=== PATIENT | male | born 1965 | race Caucasian/White ===

== ENCOUNTER 2018-03-29 16:43 | Emergency (ER) | payer OTHER ==
[2018-03-29 17:48] LABS: Absolute Lymphocytes (CBC) 0.9 K/uL (0.7-4.9); Absolute Monocytes 0.6 K/uL (0.1-1.3); Absolute Neutrophil 9.6 K/uL (1.8-8.0); Basophils % 0.3 % (0-1.3); Eosinophils % 0.2 % (0-4.4); Hematocrit 46.3 % (39.6-49.0); Lymphocytes % 7.9 % (15.3-44.8); MCH 29.2 pg (27.0-35.0); MPV 7.3 fL (7.6-11.3); Monocytes % 5.7 % (3.3-12.3); RBC Red Blood Cell Count 5.39 M/uL (4.33-5.43)
[2018-03-29 17:53] LABS: Protime INR 0.94
--- NOTE | 2018-03-29 17:56 | RAD REPORT ---
EXAM DESCRIPTION: RAD - Chest Single View - 03/29/2018 5:48 pm CLINICAL HISTORY: Chest pain. COMPARISON: None. FINDINGS: Portable technique limits examination quality. The lungs are grossly clear. The heart is normal in size. No displaced fractures. IMPRESSION: No acute intrathoracic process suspected.
[2018-03-29 18:08] LABS: Albumin 4.7 g/dL (3.2-5.5); Bilirubin Direct 0.1 mg/dL (0-0.2); Bilirubin Total 0.8 mg/dL (0.3-1.2); Magnesium 1.8 mg/dL (1.8-2.5); Protein, Total 8.2 g/dL (6.0-8.3)
[2018-03-29 18:11] LABS: CKMB Creatine Kinase MB 1.1 ng/ml (0.3-4.0)
[2018-03-29] MEDS ORDERED: ACETAMINOPHEN 500 MG TAB ONE (18:40)
[2018-03-29 18:48] LABS: Blood Morphology Comment NOT SEEN (NOT SEEN); Platelet Estimate ADEQ; Urine White Blood Cell Casts OK
--- NOTE | 2018-03-29 20:05 | EDPHYS ---
Physician Documentation [facility] Name: Thierry Davis Age: 52 yrs Sex: Male : 1965 Arrival Date: 03/29/2018 Time: 16:47 Bed 15 Private MD: ED Physician Iam Bustamante HPI: 03/29 17:30 This 52 yrs old Male presents to ER via Ambulatory with complaints of Fever, pm1 Nausea, BURPING. 17:30 Associated signs and symptoms: Pertinent positives: nausea, Pertinent negatives: pm1 abdominal pain, chest pain, cough, skin rash, shortness of breath, vomiting. The patient has not experienced similar symptoms in the past. The patient has not recently seen a physician, the patient's primary care provider is Dr. Parrish. Patient with complaints of nausea this AM that resolved by noon. No vomiting or diarrhea. Patient reports burping episode that has resolved. Patient with reports of subjective fevers today. Currently patient does not have any complaints of pain and his symptoms of nausea, burping, and fever have resolved. Historical: - Allergies: 17:00 No Known Allergies; lk1 - PMHx: 17:00 Hypertension; viral mennigitis; lk1 - PSHx: 17:00 Vasectomy; Tonsillectomy; lk1 - Immunization history:: Adult Immunizations up to date. - Social history:: Smoking status: Patient uses tobacco products, chewing tobacco. ROS: 17:30 Eyes: Negative for injury, pain, redness, and discharge, ENT: Negative for injury, pm1 pain, and discharge, Neck: Negative for injury, pain, and swelling, Cardiovascular: Negative for chest pain, palpitations, and edema, Respiratory: Negative for shortness of breath, cough, wheezing, and pleuritic chest pain. 17:30 Back: Negative for injury and pain, : Negative for injury, bleeding, discharge, and swelling, MS/Extremity: Negative for injury and deformity, Skin: Negative for injury, rash, and discoloration, Neuro: Negative for headache, weakness, numbness, tingling, and seizure. 17:30 Constitutional: Positive for fever, Negative for body aches, poor PO intake. 17:30 Abdomen/GI: Positive for nausea, Burping, Negative for abdominal pain, vomiting, diarrhea. Exam: 17:30 Constitutional: This is a well developed, well nourished patient who is awake, alert, pm1 and in no acute distress. Head/Face: Normocephalic, atraumatic. Eyes: Pupils equal round and reactive to light, extra-ocular motions intact. Lids and lashes normal. Conjunctiva and sclera are non-icteric and not injected. Cornea within normal limits. Periorbital areas with no swelling, redness, or edema. ENT: Nares patent. No nasal discharge, no septal abnormalities noted. Tympanic membranes are normal and external auditory canals are clear. Oropharynx with no redness, swelling, or masses, exudates, or evidence of obstruction, uvula midline. Mucous membranes moist. Neck: Trachea midline, no thyromegaly or masses palpated, and no cervical lymphadenopathy. Supple, full range of motion without nuchal rigidity, or vertebral point tenderness. No Meningismus. Chest/axilla: Normal chest wall appearance and motion. Nontender with no deformity. No lesions are appreciated. Cardiovascular: Regular rate and rhythm with a normal S1 and S2. No gallops, murmurs, or rubs. Normal PMI, no JVD. No pulse deficits. Respiratory: Lungs have equal breath sounds bilaterally, clear to auscultation and percussion. No rales, rhonchi or wheezes noted. No increased work of breathing, no retractions or nasal flaring. Abdomen/GI: Soft, non-tender, with normal bowel sounds. No distension or tympany. No guarding or rebound. No evidence of tenderness throughout. Back: No spinal tenderness. No costovertebral tenderness. Full range of motion. Skin: Warm, dry with normal turgor. Normal color with no rashes, no lesions, and no evidence of cellulitis. MS/ Extremity: Pulses equal, no cyanosis. Neurovascular intact. Full, normal range of motion. 17:30 Neuro: Orientation: is normal, Motor: is normal, Sensation: is normal. Vital Signs: 17:00 BP 122 / 77; Pulse 110; Resp 16; Temp 99.1(TE); Pulse Ox 97% on R/A; Weight 104.33 kg lk1 (R); Height 5 ft. 11 in. (180.34 cm) (R); Pain 0/10; 18:45 BP 114 / 74; Pulse 98; Resp 16; Temp 100.1; Pulse Ox 97% ; jl7 19:36 BP 109 / 70; Pulse 96; Resp 18; Pulse Ox 96% on R/A; Pain 0/10; ea 20:32 BP 118 / 72; Pulse 88; Resp 18; Temp 99.8(O); Pulse Ox 100% ; Pain 0/10; ea 17:00 Body Mass Index 32.08 (104.33 kg, 180.34 cm) lk1 MDM: 17:07 Patient medically screened. pm1 20:03 Data reviewed: vital signs. Data interpreted: Pulse oximetry: on room air is 96 %. pm1 Interpretation: normal. Counseling: I had a detailed discussion with the patient and/or guardian regarding: the historical points, exam findings, and any diagnostic results supporting the discharge/admit diagnosis, lab results, radiology results, the need for outpatient follow up, to return to the emergency department if symptoms worsen or persist or if there are any questions or concerns that arise at home. 03/29 17:14 Order name: Basic Metabolic Panel; Complete Time: 18:38 pm1 03/29 17:14 Order name: BNP; Complete Time: 18:38 pm1 03/29 17:14 Order name: CBC with Diff; Complete Time: 19:17 pm1 03/29 17:14 Order name: Ckmb; Complete Time: 18:38 pm1 03/29 17:14 Order name: CPK; Complete Time: 18:38 pm1 03/29 17:14 Order name: LFT's; Complete Time: 18:38 pm1 03/29 17:14 Order name: Magnesium; Complete Time: 18:38 pm1 03/29 17:14 Order name: PT-INR; Complete Time: 18:00 pm1 03/29 17:14 Order name: Ptt, Activated; Complete Time: 18:00 pm1 03/29 17:14 Order name: Troponin (emerg Dept Use Only); Complete Time: 18:38 pm1 03/29 17:14 Order name: XRAY Chest (1 view); Complete Time: 18:00 pm1 03/29 17:14 Order name: Lipase; Complete Time: 18:38 pm1 03/29 18:48 Order name: CBC Smear Scan; Complete Time: 19:17 EDMS 03/29 17:14 Order name: EKG; Complete Time: 17:14 pm1 03/29 17:14 Order name: Cardiac monitoring; Complete Time: 17:58 pm1 03/29 17:14 Order name: EKG - Nurse/Tech; Complete Time: 17:58 pm1 03/29 17:14 Order name: IV Saline Lock; Complete Time: 17:58 pm1 03/29 17:14 Order name: Labs collected and sent; Complete Time: 17:58 pm1 03/29 17:14 Order name: O2 Per Protocol; Complete Time: 17:57 pm1 03/29 17:14 Order name: O2 Sat Monitoring; Complete Time: 17:57 pm1 Administered Medications: 18:43 Drug: Acetaminophen 1000 mg Route: PO; jl7 20:10 Follow up: Response: No adverse reaction; Temperature is decreased ea Disposition: 03/29/18 20:04 Discharged to Home. Impression: Viral syndrome, Nausea. - Condition is Stable. - Discharge Instructions: Nausea, Adult, Viral Infections. - Prescriptions for Zofran 4 mg Oral Tablet - take 1 tablet by ORAL route every 12 hours As needed; 20 tablet. - Medication Reconciliation Form, Thank You Letter, Antibiotic Education form. - Follow up: Emergency Department; When: As needed; Reason: Worsening of condition. Follow up: Private Physician; When: 2 - 3 days; Reason: Recheck today's complaints, Continuance of care, Re-evaluation by your physician. - Problem is new. - Symptoms have improved. Addendum: 04/01/2018 21:58 Co-signature as Attending Physician, Iam Bustamante MD. g s Signatures: Dispatcher [employer] EDMS Raine Obrien RN RN lk1 Dejon Osborn, [place] CLERK pm1 Janes Sierra RN GUANAKITO jl7 Naye Chiu RN RN ea Starr, Gregory, MD MD gs Corrections: (The following items were deleted from the chart) 03/29 20:05 20:04 03/29/2018 20:04 Discharged to Home. Impression: Nausea; Viral syndrome. pm1 Condition is Stable. Forms are Medication Reconciliation Form, Thank You Letter, Antibiotic Education, Prescription Opioid Use. Follow up: Emergency Department; When: As needed; Reason: Worsening of condition. Follow up: Private Physician; When: 2 - 3 days; Reason: Recheck today's complaints, Continuance of care, Re-evaluation by your physician. Problem is new. Symptoms have improved. pm1 20:34 20:05 03/29/2018 20:04 Discharged to Home. Impression: Viral syndromeNausea. Condition ea is Stable. Forms are Medication Reconciliation Form, Thank You Letter, Antibiotic Education, Prescription Opioid Use. Follow up: Emergency Department; When: As needed; Reason: Worsening of condition. Follow up: Private Physician; When: 2 - 3 days; Reason: Recheck today's complaints, Continuance of care, Re-evaluation by your physician. Problem is new. Symptoms have improved. pm1
--- NOTE | 2018-03-29 20:05 | ER ---
Nurse's Notes [facility] Name: Thierry Davis Age: 52 yrs Sex: Male : 1965 Arrival Date: 03/29/2018 Time: 16:47 Bed 15 Private MD: Diagnosis: Nausea;Viral syndrome Presentation: 03/29 16:58 Presenting complaint: Patient states: "I woke up this morning nauseous. I have been lk1 sleeping on the couch and I am burping a lot. I started running a fever this afternoon.". Transition of care: patient was not received from another setting of care. Onset of symptoms was March 29, 2018 at 09:00. Risk Assessment: Do you want to hurt yourself or someone else? Patient reports no desire to harm self or others. Initial Sepsis Screen: Does the patient meet any 2 criteria? No. Patient's initial sepsis screen is negative. Does the patient have a suspected source of infection? No. Patient's initial sepsis screen is negative. Care prior to arrival: None. 16:58 Method Of Arrival: Ambulatory lk1 16:58 Acuity: NIKI 3 lk1 Historical: - Allergies: 17:00 No Known Allergies; lk1 - PMHx: 17:00 Hypertension; viral mennigitis; lk1 - PSHx: 17:00 Vasectomy; Tonsillectomy; lk1 - Immunization history:: Adult Immunizations up to date. - Social history:: Smoking status: Patient uses tobacco products, chewing tobacco. Screenin:10 Abuse screen: Denies threats or abuse. Denies injuries from another. Nutritional jl7 screening: No deficits noted. Tuberculosis screening: No symptoms or risk factors identified. Fall Risk IV access (20 points). Assessment: 17:10 General: Appears in no apparent distress. uncomfortable, Behavior is calm, cooperative, jl7 appropriate for age. Pain: Denies pain. Neuro: Level of Consciousness is awake, alert, obeys commands, Oriented to person, place, time, situation. Cardiovascular: Patient's skin is warm and dry. Respiratory: Airway is patent Respiratory effort is even, unlabored, Respiratory pattern is regular, symmetrical, Breath sounds are clear bilaterally. GI: Abdomen is round non-distended, Bowel sounds present X 4 quads. Abd is soft and non tender X 4 quads. : No signs and/or symptoms were reported regarding the genitourinary system. EENT: No signs and/or symptoms were reported regarding the EENT system. Derm: Skin is pink, warm \\T\\ dry. Musculoskeletal: No signs and/or symptoms reported regarding the musculoskeletal system. 18:00 Reassessment: Patient and/or family updated on plan of care and expected duration. Pain jl7 level reassessed. Patient is alert, oriented x 3, equal unlabored respirations, skin warm/dry/pink. 19:34 General: Appears in no apparent distress. Behavior is calm, cooperative, appropriate ea for age. Pain: Denies pain. Neuro: Level of Consciousness is awake, alert, obeys commands, Oriented to person, place, time, situation. Cardiovascular: Heart tones S1 S2 present Patient's skin is warm and dry. Respiratory: Airway is patent Respiratory effort is even, unlabored, Respiratory pattern is regular, symmetrical, Breath sounds are clear bilaterally. GI: Abdomen is non-distended, Bowel sounds present X 4 quads. Abd is soft and non tender X 4 quads. : No signs and/or symptoms were reported regarding the genitourinary system. EENT: No signs and/or symptoms were reported regarding the EENT system. Derm: Skin is pink, warm \\T\\ dry. Musculoskeletal: No signs and/or symptoms reported regarding the musculoskeletal system. 20:32 Reassessment: Patient and/or family updated on plan of care and expected duration. Pain ea level reassessed. Patient is alert, oriented x 3, equal unlabored respirations, skin warm/dry/pink. Discharge instructions given to patient, verbalized the understanding of instruction. Patient denies pain at this time. Patient states feeling better. Patient states symptoms have improved. Vital Signs: 17:00 BP 122 / 77; Pulse 110; Resp 16; Temp 99.1(TE); Pulse Ox 97% on R/A; Weight 104.33 kg lk1 (R); Height 5 ft. 11 in. (180.34 cm) (R); Pain 0/10; 18:45 BP 114 / 74; Pulse 98; Resp 16; Temp 100.1; Pulse Ox 97% ; jl7 19:36 BP 109 / 70; Pulse 96; Resp 18; Pulse Ox 96% on R/A; Pain 0/10; ea 20:32 BP 118 / 72; Pulse 88; Resp 18; Temp 99.8(O); Pulse Ox 100% ; Pain 0/10; ea 17:00 Body Mass Index 32.08 (104.33 kg, 180.34 cm) lk1 ED Course: 16:47 Patient arrived in ED. rg4 16:59 Triage completed. lk1 17:00 Arm band placed on right wrist. lk1 17:06 Dejon Osborn NP is PHCP. pm1 17:06 Iam Bustamante MD is Attending Physician. pm1 17:07 Janes Sierra RN is Primary Nurse. jl7 17:10 Patient has correct armband on for positive identification. Placed in gown. Bed in low jl7 position. Call light in reach. Side rails up X 1. Pulse ox on. NIBP on. Warm blanket given. 17:30 Initial lab(s) drawn, by ED staff, sent to lab. Inserted saline lock: 20 gauge in right jl7 antecubital area, using aseptic technique. Blood collected. 17:34 Radiology exam delayed due to IV insertion attempt and/or patient not having jb2 appropriate IV at this time. 17:48 XRAY Chest (1 view) In Process Unspecified. EDMS 17:48 X-ray completed. Portable x-ray completed in exam room. Patient tolerated procedure kc2 well. 17:52 EKG done, by headend technician. reviewed by Dejon Osborn NP. at1 19:09 Report given to GUANAKTIO Yancey. jl7 20:33 No provider procedures requiring assistance completed. IV discontinued, intact, ea bleeding controlled, No redness/swelling at site. Pressure dressing applied. Administered Medications: 18:43 Drug: Acetaminophen 1000 mg Route: PO; jl7 20:10 Follow up: Response: No adverse reaction; Temperature is decreased ea Outcome: 20:04 Discharge ordered by . pm1 20:33 Discharged to home ambulatory, with family. ea 20:33 Condition: improved 20:33 Discharge instructions given to patient, Instructed on discharge instructions, follow up and referral plans. medication usage, Demonstrated understanding of instructions, follow-up care, medications, Prescriptions given X 1. 20:34 Patient left the ED. ea Signatures: Dispatcher [employer] EDMS Dong Sanches jb2 Allison james, general contractor EKG Tat1 Raine Obrien RN RN lk1 Dejon Osborn, OBIEE LEAD DEVELOPER OBIEE LEAD DEVELOPER pm1 Lianna Cadena kc2 Bee Scherer rg4 Janes Sierra RN RN prasanth7 Naye Chiu RN RN ea Corrections: (The following items were deleted from the chart) 18:47 18:45 BP 114 / 74; Pulse 98bpm; Resp 16bpm; Pulse Ox 97%; Temp 100.4F; [facility]
[2018-03-29 21:12] VITALS: BP 118/72; TEMP 99.8; O2SAT 100
--- NOTE | 2018-03-29 23:43 | EKG ---
Test Date: 2018-03-29 Test Time: 17:34:52 Reflesher: BIBIANA MEASUREMENT RESULTS: Intervals: Rate: 106 GA: 122 QRSD: 94 QT: 334 QTc: 443 [place]: P: 44 GA: 122 QRS: 82 T: 39 INTERPRETIVE STATEMENTS: Sinus tachycardia Otherwise normal ECG No previous ECG available for comparison Electronically Signed On 03-29-18 23:43:00 CDT by Paul Patel
== END 2018-03-29 20:34 | disposition home or self-care (01) ==
LOC: ER 16:43
DX: B34.9 Viral infection, unspecified (principal); I10 Essential (primary) hypertension; Z72.0 Tobacco use
CPT/HCPCS: 36415; 71045; 80048; 80076; 82550; 82553; 83690; 83735; 83880; 84484; 85025; 85610; 85730; 93005; 99284

== ENCOUNTER 2018-04-09 01:52 | Observation (INO) | payer OTHER ==
[2018-04-09 02:25] LABS: Absolute Lymphocytes (CBC) 2.5 K/uL (0.7-4.9); Absolute Monocytes 0.7 K/uL (0.1-1.3); Absolute Neutrophil 5.2 K/uL (1.8-8.0); Basophils % 0.9 % (0-1.3); Eosinophils % 2.9 % (0-4.4); Hematocrit 43.6 % (39.6-49.0); Lymphocytes % 28.5 % (15.3-44.8); MCV 85.9 fL (80-100); MPV 7.4 fL (7.6-11.3); Monocytes % 7.7 % (3.3-12.3); RBC Red Blood Cell Count 5.07 M/uL (4.33-5.43)
[2018-04-09 02:28] LABS: Protime INR 0.88
[2018-04-09 02:39] LABS: Bicarbonate 25 mEq/L (21-31); Glucose Level 98 mg/dL (65-120); Potassium 3.4 mEq/L (3.6-5.0); Sodium Level 139 mEq/L (135-145)
[2018-04-09 02:43] LABS: CKMB Creatine Kinase MB 3.8 ng/ml (0.3-4.0)
[2018-04-09 02:45] LABS: ALT/SGPT 51 IU/L (10-60); AST/SGOT 58 IU/L (10-42); Alkaline Phosphatase 88 IU/L (42-121); BUN Blood Urea Nitrogen 18 mg/dL (6-20); Bilirubin Direct < 0.1 mg/dL (0-0.2); Bilirubin Total 0.7 mg/dL (0.3-1.2); Creatine Phosphokinase 173 IU/L (22-269); Protein, Total 6.5 g/dL (6.0-8.3)
--- NOTE | 2018-04-09 03:39 | ER ---
Nurse's Notes [facility] Name: Thierry Davis Age: 52 yrs Sex: Male : 1965 Arrival Date: 04/09/2018 Time: 01:53 Bed 6 Private MD: Brett Parrish Diagnosis: Chest pain, unspecified Presentation: 04/09 01:58 Presenting complaint: Patient states: he is having right sided chest pain since Thursday pain is getting worse he was unable to sleep comfortably tonight denies radiation, SOB, dizziness. Transition of care: patient was not received from another setting of care. Onset of symptoms was April 07, 2018. Risk Assessment: Do you want to hurt yourself or someone else? Patient reports no desire to harm self or others. Initial Sepsis Screen: Does the patient meet any 2 criteria? No. Patient's initial sepsis screen is negative. Does the patient have a suspected source of infection? No. Patient's initial sepsis screen is negative. Care prior to arrival: None. 01:58 Method Of Arrival: Ambulatory 01:58 Acuity: NIKI 3 bb Historical: - Allergies: 02:00 No Known Allergies; bb - Home Meds: 02:00 amlodipine 5 mg tab [Active]; enalapril-hydrochlorothiazide 10-25 mg Oral tab [Active]; bb - PMHx: 02:00 Hypertension; viral mennigitis; bb - PSHx: 02:00 Vasectomy; Tonsillectomy; bb - Immunization history:: Adult Immunizations up to date. - Social history:: Smoking status: Patient/guardian denies using tobacco, Patient uses alcohol, occasionally. Patient/guardian denies using street drugs. - Ebola Screening: : Patient negative for fever greater than or equal to 101.5 degrees Fahrenheit, and additional compatible Ebola Virus Disease symptoms. Screenin:08 Abuse screen: Denies threats or abuse. Nutritional screening: No deficits noted. jd3 Tuberculosis screening: No symptoms or risk factors identified. Fall Risk IV access (20 points). Gait- Normal/Bed Rest/Wheelchair (0 pts) Mental Status- Oriented to own ability (0 pts). Total Price Fall Scale indicates No Risk (0-24 pts). Assessment: 02:06 General: Appears uncomfortable, Behavior is calm, cooperative, appropriate for age. jd3 Pain: Complains of pain in chest Pain does not radiate. Pain currently is 4 out of 10 on a pain scale. Quality of pain is described as dull, pressure, Pain began 2-3 days ago. Is continuous. Neuro: Level of Consciousness is awake, alert, obeys commands, Oriented to person, place, time, situation. Cardiovascular: Heart tones S1 S2 present Capillary refill < 3 seconds Patient's skin is warm and dry. Rhythm is regular. Respiratory: Airway is patent Respiratory effort is even, unlabored, Respiratory pattern is regular, symmetrical, Breath sounds are clear bilaterally. GI: Bowel sounds present X 4 quads. Abd is soft and non tender X 4 quads. Patient currently denies diarrhea, nausea, vomiting. : No signs and/or symptoms were reported regarding the genitourinary system. EENT: No signs and/or symptoms were reported regarding the EENT system. Derm: Skin is intact, Skin is dry, Skin is normal, Skin temperature is warm. Musculoskeletal: Circulation, motion, and sensation intact. Range of motion: intact in all extremities. 03:00 Reassessment: Patient appears in no apparent distress at this time. Patient and/or jd3 family updated on plan of care and expected duration. Pain level reassessed. Patient is alert, oriented x 3, equal unlabored respirations, skin warm/dry/pink. 04:00 Reassessment: Patient appears in no apparent distress at this time. Patient and/or jd3 family updated on plan of care and expected duration. Pain level reassessed. Patient is alert, oriented x 3, equal unlabored respirations, skin warm/dry/pink. 05:36 Reassessment: Patient appears in no apparent distress at this time. Patient and/or jd3 family updated on plan of care and expected duration. Pain level reassessed. Patient is alert, oriented x 3, equal unlabored respirations, skin warm/dry/pink. pt reporting understanding of need for admission. Vital Signs: 02:00 BP 146 / 93; Pulse 79; Resp 18 S; Temp 97.9(O); Pulse Ox 98% on R/A; Weight 104.33 kg bb (R); Height 5 ft. 11 in. (180.34 cm) (R); Pain 5/10; 03:00 BP 130 / 91; Pulse 83; Resp 17 S; Pulse Ox 99% on R/A; jd3 04:12 BP 128 / 90; Pulse 68; Resp 16 S; Pulse Ox 99% on R/A; Pain 4/10; jd3 05:30 BP 119 / 88; Pulse 68; Resp 16 S; Pulse Ox 99% on R/A; Pain 4/10; jd3 02:00 Body Mass Index 32.08 (104.33 kg, 180.34 cm) bb ED Course: 01:53 Patient arrived in ED. am2 01:53 Brett Parrish MD is Private Physician. am2 01:53 Toni Tee, GUANAKITO is Primary Nurse. jd3 02:00 Triage completed. bb 02:00 Arm band placed on Patient placed in a hallway bed, on a stretcher, on hotel registration clerk, bb on pulse oximetry. EKG completed in triage. Results shown to MD. 02:06 Arthur Mcfadden MD is Attending Physician. tw4 02:06 Inserted saline lock: 20 gauge in right forearm, using aseptic technique. Blood jd3 collected. placed by MG CALABRESE. Patient maintains SpO2 saturation greater than 95% on room air. 02:09 Patient has correct armband on for positive identification. Placed in gown. Bed in low jd3 position. Call light in reach. Side rails up X2. land surveying party chief on. Pulse ox on. NIBP on. 02:13 X-ray completed. Portable x-ray completed in exam room. Patient tolerated procedure kw well. 02:14 XRAY Chest (1 view) In Process Unspecified. EDMS 03:38 Vesta Vinson MD is Hospitalizing Provider. tw4 04:12 No provider procedures requiring assistance completed. Patient admitted, IV remains in jd3 place. Administered Medications: 03:54 Drug: Aspirin Chewable Tablet 162 mg Route: PO; jd3 05:36 Follow up: Response: No adverse reaction jd3 Outcome: 03:38 Decision to Hospitalize by Provider. tw4 05:35 Admitted to Tele accompanied by tech, via wheelchair, room 408, with chart, Report jd3 called to Jemima CALABRESE 05:35 Condition: stable 05:35 Instructed on the need for admit, Demonstrated understanding of instructions. 05:48 Patient left the ED. jd3 Signatures: Dispatcher [facility] EDMD Thi Negron RN RN Lynn Olvera Amanda am2 Toni Tee RN RN jd3 Arthur Mcfadden MD MD tw4
--- NOTE | 2018-04-09 03:39 | EDPHYS ---
Physician Documentation [facility] Name: Thierry Davis Age: 52 yrs Sex: Male : 1965 Arrival Date: 04/09/2018 Time: 01:53 Bed 6 Private MD: Brett Parrish ED Physician Arthur Mcfadden HPI: 04/09 02:19 This 52 yrs old Male presents to ER via Ambulatory with complaints of Chest tw4 Pain. 02:19 The patient or guardian reports chest pain that is located primarily in the anterior tw4 chest wall. 02:19 Onset: 2 day(s) ago. The pain does not radiate. Associated signs and symptoms: The tw4 patient has no apparent associated signs or symptoms. The chest pain is described as dull. Duration: The patient or guardian reports a single episode, that is now resolved, The patient or guardian reports multiple episodes, that have now resolved. Modifying factors: The symptoms are alleviated by nothing. the symptoms are aggravated by nothing. Severity of pain: At its worst the pain was moderate in the emergency department the pain is unchanged. The patient has not experienced similar symptoms in the past. Historical: - Allergies: 02:00 No Known Allergies; bb - Home Meds: 02:00 amlodipine 5 mg tab [Active]; enalapril-hydrochlorothiazide 10-25 mg Oral tab [Active]; bb - PMHx: 02:00 Hypertension; viral mennigitis; bb - PSHx: 02:00 Vasectomy; Tonsillectomy; bb - Immunization history:: Adult Immunizations up to date. - Social history:: Smoking status: Patient/guardian denies using tobacco, Patient uses alcohol, occasionally. Patient/guardian denies using street drugs. - Ebola Screening: : Patient negative for fever greater than or equal to 101.5 degrees Fahrenheit, and additional compatible Ebola Virus Disease symptoms. ROS: 02:19 Constitutional: Negative for fever, chills, and weight loss, Respiratory: Negative for tw4 shortness of breath, cough, wheezing, and pleuritic chest pain, Abdomen/GI: Negative for abdominal pain, nausea, vomiting, diarrhea, and constipation, Back: Negative for injury and pain, MS/Extremity: Negative for injury and deformity, Skin: Negative for injury, rash, and discoloration. 02:19 Cardiovascular: Positive for chest pain, Negative for orthopnea, palpitations, paroxysmal nocturnal dyspnea. Exam: 02:19 Constitutional: This is a well developed, well nourished patient who is awake, alert, tw4 and in no acute distress. Chest/axilla: Normal chest wall appearance and motion. Nontender with no deformity. No lesions are appreciated. Cardiovascular: Regular rate and rhythm with a normal S1 and S2. No gallops, murmurs, or rubs. Normal PMI, no JVD. No pulse deficits. Respiratory: Lungs have equal breath sounds bilaterally, clear to auscultation and percussion. No rales, rhonchi or wheezes noted. No increased work of breathing, no retractions or nasal flaring. Abdomen/GI: Soft, non-tender, with normal bowel sounds. No distension or tympany. No guarding or rebound. No evidence of tenderness throughout. Back: No spinal tenderness. No costovertebral tenderness. Full range of motion. MS/ Extremity: Pulses equal, no cyanosis. Neurovascular intact. Full, normal range of motion. Neuro: Awake and alert, GCS 15, oriented to person, place, time, and situation. Cranial nerves II-XII grossly intact. Motor strength 5/5 in all extremities. Sensory grossly intact. Cerebellar exam normal. Normal gait. Vital Signs: 02:00 BP 146 / 93; Pulse 79; Resp 18 S; Temp 97.9(O); Pulse Ox 98% on R/A; Weight 104.33 kg bb (R); Height 5 ft. 11 in. (180.34 cm) (R); Pain 5/10; 03:00 BP 130 / 91; Pulse 83; Resp 17 S; Pulse Ox 99% on R/A; jd3 04:12 BP 128 / 90; Pulse 68; Resp 16 S; Pulse Ox 99% on R/A; Pain 4/10; jd3 05:30 BP 119 / 88; Pulse 68; Resp 16 S; Pulse Ox 99% on R/A; Pain 4/10; jd3 02:00 Body Mass Index 32.08 (104.33 kg, 180.34 cm) bb MDM: 02:06 Patient medically screened. tw4 05:19 Differential diagnosis: abnormal EKG, acute myocardial infarction, acute pericarditis, tw4 anxiety, coronary artery disease chest wall pain. Data reviewed: vital signs, nurses notes, EMS record. Data interpreted: monitoring tech: rhythm is normal sinus rhythm, Pulse oximetry: Interpretation: normal. Counseling: I had a detailed discussion with the patient and/or guardian regarding: the historical points, exam findings, and any diagnostic results supporting the discharge/admit diagnosis. Physician consultation: Vesta Vinson MD was called at 03:03, was contacted at 03:03, regarding patient's condition, need to come to ED to see patient, and will see patient in ED. Admission orders: after a detailed discussion of the patient's condition and case, the admit orders are written by me. 04/09 02:02 Order name: Basic Metabolic Panel; Complete Time: 03:04 jd3 04/09 02:02 Order name: BNP; Complete Time: 03:04 jd3 04/09 02:02 Order name: CBC with Diff; Complete Time: 03:04 jd3 04/09 02:02 Order name: Ckmb; Complete Time: 03:04 jd3 04/09 02:02 Order name: CPK; Complete Time: 03:04 jd3 04/09 02:02 Order name: LFT's; Complete Time: 03:04 jd3 04/09 02:02 Order name: Magnesium; Complete Time: 03:04 jd3 04/09 02:02 Order name: PT-INR; Complete Time: 03:04 jd3 04/09 02:02 Order name: Ptt, Activated; Complete Time: 03:04 jd3 04/09 02:02 Order name: Troponin (emerg Dept Use Only); Complete Time: 03:04 jd3 04/09 02:02 Order name: XRAY Chest (1 view) jd3 04/09 02:02 Order name: EKG; Complete Time: 02:02 jd3 04/09 02:02 Order name: Cardiac monitoring; Complete Time: 02:02 jd3 04/09 02:02 Order name: EKG - Nurse/Tech; Complete Time: 02:02 jd3 04/09 02:02 Order name: IV Saline Lock; Complete Time: 02:10 jd3 04/09 02:02 Order name: Labs collected and sent; Complete Time: 02:10 jd3 04/09 02:02 Order name: O2 Per Protocol; Complete Time: 02:02 jd3 04/09 02:02 Order name: O2 Sat Monitoring; Complete Time: 02:02 jd3 Administered Medications: 03:54 Drug: Aspirin Chewable Tablet 162 mg Route: PO; jd3 05:36 Follow up: Response: No adverse reaction jd3 Disposition: 04/09/18 03:38 Hospitalization ordered by Vesta Vinson for Observation. Preliminary diagnosis is Chest pain, unspecified. - Bed requested for Telemetry/MedSurg (observation). - Status is Observation. jd3 - Condition is Stable. - Problem is new. - Symptoms have improved. UTI on Admission? No Signatures: Dispatcher [employer] EDMS Jeni Lloyd RN RN mw Ballard, Brenda RN RN Toni Tipton RN Arthur Mistry MD MD tw4 Corrections: (The following items were deleted from the chart) 03:54 03:38 Hospitalization Ordered by Vesta Vinson MD for Observation. Preliminary mw diagnosis is Chest pain, unspecified. Bed requested for Telemetry/MedSurg (observation). Status is Observation. Condition is Stable. Problem is new. Symptoms have improved. UTI on Admission? No. tw4 05:48 03:54 04/09/2018 03:38 Hospitalization Ordered by Vesta Vinson MD for Observation. jd3 Preliminary diagnosis is Chest pain, unspecified. Bed requested for Telemetry/MedSurg (observation). Status is Observation. Condition is Stable. Problem is new. Symptoms have improved. UTI on Admission? No. mw
[2018-04-09] MEDS ORDERED: ASPIRIN 81 MG CHEWABLE TABLET ONE (03:53)
--- NOTE | 2018-04-09 05:02 | P.HP ---
Certification for Inpatient Patient admitted to: Observation With expected LOS: <2 Midnights Practitioner: I am a practitioner with admitting privileges, knowledge of patient current condition, hospital course, and medical plan of care. Services: Services provided to patient in accordance with Admission requirements found in Title 42 Section 412.3 of the Code of Federal Regulations Patient History Date of Service: 04/09/18 Reason for admission: chest pain History of Present Illness: Mr Davis is a 52 years old male with history of HTN, who came to ED complaining of chest pain. His symptoms started about 2 days ago. The pain is comes and go, described as dull, with periods of exacerbation, specially when he is laying down, but not getting worse with movements or deep breath. Intensity is about 5/ 10. The pain is located on his right side of the chest, no radiated. He denied SOB, nausea, vomiting, palpitations, diaphoresis, or similar episodes in the past. At arrival he had no pain, EKG shows SR without ST-T abnormalities. Initial trop I is negative. Allergies No Known Allergies Allergy (Verified 07/31/17 04:25) Home Medications: RX: Amlodipine Besylate 5 mg PO DAILY 07/31/17 RX: Enalapril/Hydrochlorothiazide [Enalapril-Hctz 10-25 mg Tablet] 1 tab PO DAILY 07/31/17 RX: Rizatriptan Benzoate [Rizatriptan] 10 mg PO DAILYPRN PRN 07/31/17 RX: Acyclovir 400 mg PO TID #30 tablet 08/03/17 - Past Medical/Surgical History Diabetic: No -: hypertension -: viral meningitis -: vasectomy -: tonsillectomy - Family History Family History: Reviewed- Non-Contributory - Social History Smoking Status: Never smoker Alcohol use: Yes CD- Drugs: No Caffeine use: Yes Place of Residence: Home Review of Systems 10-point ROS is otherwise unremarkable Physical Examination - Physical Exam General: Alert, In no apparent distress HEENT: Atraumatic, PERRLA, Mucous membr. moist/pink, EOMI, Sclerae nonicteric Neck: Supple, 2+ carotid pulse no bruit, No LAD, Without JVD or thyroid abnormality Respiratory: Clear to auscultation bilaterally, Normal air movement Cardiovascular: Regular rate/rhythm, Normal S1 S2 Gastrointestinal: Normal bowel sounds, No tenderness Musculoskeletal: No tenderness Integumentary: No rashes Neurological: Normal speech, Normal strength at 5/5 x4 extr, Normal tone, Normal affect Lymphatics: No axilla or inguinal lymphadenopathy - Studies Laboratory Data (last 24 hrs) 04/09/18 02:05: PT 10.4, INR 0.88, APTT 27.3 04/09/18 02:05: WBC 8.6 D, Hgb 14.7, Hct 43.6, Plt Count 279 D 04/09/18 02:05: B-Natriuretic Peptide < 10 04/09/18 02:05: Sodium 139, Potassium 3.4 L, BUN 18, Creatinine 1.07, Glucose 98 , Magnesium 2.0, Total Bilirubin 0.7, AST 58 H, ALT 51, Alkaline Phosphatase 88 Assessment and Plan - Problems (Diagnosis) (1) Chest pain Current Visit: Yes Status: Acute Qualifiers: Chest pain type: unspecified Qualified Code(s): R07.9 - Chest pain, unspecified (2) HTN (hypertension) Onset Date: 07/31/17 Current Visit: No Status: Acute Qualifiers: Hypertension type: essential hypertension Qualified Code(s): I10 - Essential (primary) hypertension - Plan The patient will be admitted to the hospital due to chest pain. By presentation is atypical, initial trop I is negative and EKG shows no ST-T abnormalities. Will order serial troponin I, EKG, ECHO in AM, consult map maker. - Advance Directives Does patient have a Living Will: No Does patient have a Durable POA for Healthcare: No - Code Status/Comfort Care Code Status Assessed: Yes Code Status: Full Code
[2018-04-09] MEDS ORDERED: ONDANSETRON 4 MG/2 ML VIAL IV PRN (05:45)
[2018-04-09] MEDS ORDERED: ACETAMINOPHEN 500 MG TAB PO PRN (05:45)
[2018-04-09 06:00] VITALS: BMI 32.5
--- NOTE | 2018-04-09 06:50 | EKG ---
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
--- NOTE | 2018-04-09 08:38 | RAD REPORT ---
EXAM DESCRIPTION: RAD - Chest Single View - 04/09/2018 2:16 am CLINICAL HISTORY: Persistent right-sided chest pain COMPARISON: March 29 TECHNIQUE: AP portable chest image was obtained 0204 hours . FINDINGS: No focal lung parenchymal process. Lung markings are stable from short term comparison. No failure or volume overload. Heart and vasculature are normal. No measurable pleural effusion and no pneumothorax. No gross bony abnormality seen. No acute aortic findings suspected. IMPRESSION: No acute cardiopulmonary process. No significant interval change.
[2018-04-09] MEDS ORDERED: ENOXAPARIN 40 MG/0.4 ML SQ SCH (09:00)
[2018-04-09 11:18] LABS: Urine Appearance CLEAR; Urine Bilirubin NEGATIVE (NEG); Urine Blood 1+ (NEG); Urine Color YELLOW; Urine Glucose NEGATIVE (NEG); Urine Protein NEGATIVE (NEG); Urine Urobilinogen 0.2 mg/dL (0.2-1.0)
[2018-04-09 11:33] LABS: Urine Microscopic Reflex ORDER UMIC
[2018-04-09 11:34] LABS: Urine Bacteria <20 /HPF (NONE SEEN); Urine Culture Reflex Order NOT NEEDED; Urine RBC <5 /HPF (NONE SEEN)
--- NOTE | 2018-04-09 12:00 | CON ---
Identification: A 52-year-old man. History Of Present Illness: Mr. Davis came to the hospital with chest pain. Chest pain started more than 48 hours ago. It is right lower part of his chest or almost right upper quadrant point area. It was mild at first, grew progressively worse. It has not gone away. He has been able to sleep, he has been able to do yard work, and travel without exacerbating it during those times, but it has got ten progressively worse, never was severe, but he worried it could be his heart, so he came to the ER . Since being in our hospital, he has had normal troponins, normal EKGs. He has a normal blood suga r, normal lipid panel. He has underlying hypertension and takes enalapril, hydrochlorothiazide, and amlodipine for blood pressure. Allergies: HE REPORTS NO ALLERGIES. Social History: He chews tobacco. Alcohol use, moderate. No illegal drugs. Physical Examination: Vital signs: 5 feet 11 inches, 232 pounds. HEENT: Normal. Lungs: Clear. Cardiac: Normal. Neck: Carotids, no bruits. Extremities: Normal pulses. EKG normal. Impression: The pain is likely not cardiac, but I will recommend a stress test and echo. If those a re normal, he could be discharged for outpatient care. Perhaps it is gallbladder pain, but it is not typical for any particular disease. So, screening for life-threatening diseases is appropriate at is point. TIM Voice ID: [id number] Report ID: [id number]
--- NOTE | 2018-04-09 12:47 | RAD REPORT ---
EXAM DESCRIPTION: NM - Rest Stress Cardiac Imaging - 04/09/2018 12:23 pm CLINICAL HISTORY: Chest pain COMPARISON: None. TECHNIQUE: The patient was administered 10.1 mCi of Tc 99m Sestamibi prior to resting SPECT imaging of the heart. The patient was then administered 30.6 mCi of Tc 99m Sestamibi following exercise or ph armacologic stress. Multiplanar SPECT images were reviewed. FINDINGS: The end diastolic volume is 95 ml, the end systolic volume is 42 ml, and the ejection frac tion is 56 %. No stress-induced ischemic change. No definitive areas of scarring identified. Minimal diaphragm atte nuation artifact seen inferolateral wall. IMPRESSION: No stress induced ischemia or other suspicious findings. Ventricular volumes and ejection fraction are normal range.
[2018-04-09 12:55] VITALS: O2SAT 98
[2018-04-09 13:22] VITALS: BP 133/78; TEMP 98.2
--- NOTE | 2018-04-09 14:28 | ECHO ---
HEIGHT: 5 ft 11 in WEIGHT: 232 lb 14.4 oz DATE OF STUDY: 04/09/[address]: Vesta Quiñonez MD 2-DIMENSIONAL: YES M.MODE: YES DOPPLER: YES COLOR FLOW: YES TDS: PORTABLE: DEFINITY: BUBBLE STUDY: DIAGNOSIS: CHEST PAIN CARDIAC HISTORY: CATHERIZATION: NO SURGERY: NO PROSTHETIC VALVE: NO PACEMAKER: NO MEASUREMENTS (cm) DIASTOLIC (NORMALS) SYSTOLIC (NORMALS) IVSd 1.0 (0.6-1.2) LA Diam 2.7 (1.9-4.0) LVEF 55% LVIDd 4.2 (3.5-5.7) LVIDs 3.0 (2.0-3.5) %FS 28% LVPWd 0.9 (0.6-1.2) Ao Diam 3.2 (2.0-3.7) 2 DIMENSIONAL ASSESSMENT: RIGHT ATRIUM: NORMAL LEFT ATRIUM: NORMAL RIGHT VENTRICLE: NORMAL LEFT VENTRICLE: NORMAL TRICUSPID VALVE: NORMAL MITRAL VALVE: NORMAL PULMONIC VALVE: NORMAL AORTIC VALVE: NORMAL PERICARDIAL EFFUSION: NONE AORTIC ROOT: NORMAL LEFT VENTRICULAR WALL MOTION: NORMAL DOPPLER/COLOR FLOW: TRACE MITRAL REGURGITATION. COMMENTS: NORMAL 2-DIMENSIONAL ECHOCARDIOGRAM. TRACE MITRAL REGURGITATION. TECHNOLOGIST: JENNY ROBLES
--- NOTE | 2018-04-09 14:33 | TREADMILL ---
70% H.R.: 118 85% H.R.: 144 90% H.R.: 152 100% H.R.: 169 DX: CHEST PAIN Date of Study: 04/09/2018 Ht: 5 11 Wt: 232 lb 14.4 oz Consulting Physician: CELSA MEDICATIONS: TYLENOL, LOVENOX, ZOFRAN HISTORY: 52 YEAR OLD MALE WITH COMPLIANTS OF CHEST PAIN, FOUR OUT OF TEN ON PAIN SCALE. HISTORY OF HYPERTENSION. PHYSICIAL EXAMINATION: RESTING B.P.: 138/88 RESTING H.R.: 73 RESTING EKG: NORMAL PROTOCOL: MONY CARDIOLITE EXERCISE TIME: 8:00 MAXIMUM HEART RATE: 155 % OF PREDICTED B.P. AT PEAK STRESS: 160/90 H.R. AT 1 MINUTE POST EXERCISE: 141 IMPRESSION: ROUTINE MONY STOPPED DUE TO FATIGUE AND TARGET HEART RATE REACHED. NO CHANGE IN CHEST PAIN, REMAINS A FOUR OUT OF TEN ON PAIN SCALE. NO VENTRICULAR TACHYCARDIA. NO SUPRAVENTRICULAR TACHYCARDIA. NO ST DEPRESSION WITH STRESS. NORMAL ELECTROCARDIOGRAM STRESS TEST.
== END 2018-04-09 13:15 | disposition home or self-care (01) ==
LOC: ER 01:52 → ERHOLD 03:44 → 4TH 05:01
PROVIDERS: ADMIT Internal Medicine; ATTEND Family Medicine
DX: R07.9 Chest pain, unspecified (principal); I10 Essential (primary) hypertension
CPT/HCPCS: 36415; 71045; 78452; 80048; 80061; 80076; 81003; 81015; 82550; 82553; 83735; 83880; 84484; 85025; 85610; 85730; 93005; 93017; 93306; 99285; A9500; G0378; J1650